=== PATIENT | male | born 1990 | race Caucasian/White ===

== ENCOUNTER 2020-07-28 16:54 | Emergency (ER) | payer OTHER ==
[~2020-07-28] VITALS: Ht 188 cm; Wt 104.3 kg
[2020-07-28] MEDS ORDERED: DEPAKOTE ER500 M1 PO (17:04)
[2020-07-28] MEDS ORDERED: BENZTROPINE MES1 MG PO (17:05)
[2020-07-28] MEDS ORDERED: LORATIDINE 10 M10 M1 PO (17:05)
[2020-07-28] MEDS ORDERED: PROTONIX40 M2 PO (17:05)
[2020-07-28] MEDS ORDERED: HYDROXYZINE PAM25 M1 PO (17:06)
[2020-07-28] MEDS ORDERED: DEPAKOTE 250MG250 MG PO (17:06)
[2020-07-28] MEDS ORDERED: REMERON15 M2 PO (17:07)
[2020-07-28] MEDS ORDERED: MELATONIN5 MG PO (17:07)
[2020-07-28] MEDS ORDERED: MINIPRESS2 MG PO (17:08)
[2020-07-28] MEDS ORDERED: OLANZAPINE15 M1 PO (17:08)
[2020-07-28] MEDS ORDERED: DESYREL150 MG PO (17:09)
[2020-07-28] MEDS ORDERED: TYLENOL325 M1 PO (17:09)
[2020-07-28 18:30] VITALS: BP 126/77
== END 2020-07-28 18:40 ==
LOC: ER 16:54
DX: M25.522 Pain in left elbow (principal); Z79.899 Other long term (current) drug therapy; Z88.5 Allergy status to narcotic agent; Y04.2XXA Assault by strike against or bumped into by another person, initial encounter; Y93.89 Activity, other specified; Y92.89 Other specified places as the place of occurrence of the external cause; Y99.8 Other external cause status

== ENCOUNTER 2020-09-02 12:07 | Emergency (ER) | payer OTHER ==
[~2020-09-02] VITALS: Ht 193 cm; Wt 104.3 kg
[~2020-09-02 12:07] MED LIST: BENZTROPINE MES1 MG PO; DEPAKOTE 250MG250 MG PO; DEPAKOTE ER500 M1 PO; DESYREL150 MG PO; HYDROXYZINE PAM25 M1 PO; LORATIDINE 10 M10 M1 PO; MELATONIN5 MG PO; MINIPRESS2 MG PO; OLANZAPINE15 M1 PO; PROTONIX40 M2 PO; REMERON15 M2 PO; TYLENOL325 M1 PO
[2020-09-02] MEDS ORDERED: TORADOL 10 MG T10 MG PO (13:51)
[2020-09-02 13:55] VITALS: BP 119/78
== END 2020-09-02 13:55 ==
LOC: ER 12:07
DX: S09.90XA Unspecified injury of head, initial encounter (principal); Z79.899 Other long term (current) drug therapy; Z88.5 Allergy status to narcotic agent; Y04.2XXA Assault by strike against or bumped into by another person, initial encounter; Y93.89 Activity, other specified; Y92.89 Other specified places as the place of occurrence of the external cause; Y99.8 Other external cause status

== ENCOUNTER 2021-04-13 17:24 | Emergency (ER) | payer OTHER ==
[~2021-04-13] VITALS: Ht 193 cm; Wt 86.2 kg
--- NOTE | ~2021-04-13 | EMS ---
[facility] [address] [place] [address] EMS Patient Care Report Name: AUDRA MARQUIS Room #: DEP ANGELA Boland#: [id number] Admission: 04/13/21 Attend Phys: Discharge: 04/13/21 Date of : [birth year] Report #: [id number] THIS REPORT FOR: //name// Report Transmitted: 04/16/2021 09:31 EMS Care Summary [place], [place]/[facility] Incident [id number] @ 04/13/2021 16:46 Incident Location [address] [place] [address] Patient AUDRA MARQUIS Male, 30 Years 1990 Patient Address [id number] [place] [id number] Patient History Behavioral/Psychiatric Disorder,Gastro-Esophageal Reflux Disease (GERD),Schizophrenia, Patient Allergies Codeine, Patient Medications Protonix, Mirtazapine, Prazosin, Hydroxyzine, Olanzapine, Depakote, Clonazepam, Melatonin, Benztropine, Trazodone, Chief Complaint suicidal Disposition Transported No Lights/[place] Dispatch Reason Sick Person Transported To [facility] Narrative patient is found walking around at the scene. patient states that for about the [facility] [address] [place] [address] EMS Patient Care Report Name: AUDRA MARQUIS Room #: DEP ER Kya#: [id number] Admission: 04/13/21 Attend Phys: Discharge: 04/13/21 Date of : [birth year] Report #: [id number] last two days he has been feeling suicidal. patient says that he has a plan by hanging himself. patient has not made an attempt. patient is calm and cooperative. patient is wanting to get help. patient has no complaints of illness or pain. patient remains alert during transport. Initial Vitals @17:09P: 76,R: 14,BP: 131/81,Pain: 0/10,GCS: 15,Revised Trauma: 12, Assessments @17:09MENTAL:No Abnormalities,SKIN:No Abnormalities,HEENT:Head/Face: No Abnormalities,Eyes: No Abnormalities,Neck/Airway: No Abnormalities,LUNG SOUNDS:General: No Abnormalities,Left Upper: No Abnormalities,Right Upper: No Abnormalities,Left Lower: No Abnormalities,Right Lower: No Abnormalities,ABDOMEN:General: No Abnormalities,Left Upper: No Abnormalities,Right Upper: No Abnormalities,Left Lower: No Abnormalities,Right Lower: No Abnormalities,PELVIS//GI:No Abnormalities,EXTREMITIES:Left Arm: No Abnormalities,Right Arm: No Abnormalities,Left Leg: No Abnormalities,Right Leg: No Abnormalities,PULSE:NEURO:No Abnormalities, Impression Behavioral/psychiatric episode Procedures @17:09ALS AssessmentResponse: UnchangedSucceeded@17:14StretcherResponse: Unchanged Timeline 16:44,Call Received 16:44,Dispatch Notified 16:46,Dispatched 16:52,En Route 17:05,On Scene 17:09,At Patient 17:09,ALS Assessment,Response: UnchangedSucceeded, 17:09,BP: 131/81 M,PULSE: 76,RR: 14 R,SPO2: Ox,ETCO2: ,BG: ,PAIN: 0,GCS: 15, 17:13,Depart Scene 17:14,Stretcher,Response: Unchanged 17:40,At Destination 17:44,Call Closed Disclaimer v1.1 Copyright 2020 [employer] This EMS Care Summary contains data elements from the applicable legal record (which may be displayed differently). It is designed to provide pertinent information for the following purposes: continuity of care, clinical quality, and state data reporting. The complete legal record is available to ED staff [address] [address] EMS Patient Care Report Name: AUDRA MARQUIS [facility] [id number] Admission: 04/13/21 Attend Phys: Discharge: 04/13/21 Date of : [birth year] Report #: [id number] and administrators of the receiving hospital in [place]'s Patient Tracker. All data is provided "as is."
[~2021-04-13 17:24] MED LIST changes: +TORADOL 10 MG T10 MG PO
[2021-04-13 17:54] LABS: ABSOLUTE NEUTROPHILS 3.2 thou/uL (1.4-8.2); BASOPHILS 0.3 % (0.0-2.0); EOSINOPHILS 3.7 % (0.0-3.0); HEMOGLOBIN 13.6 gm/dL (14.0-18.0); LYMPHOCYTES 41.4 % (24.0-44.0); MCH 29.9 pg (26.0-34.0); MCHC 33.2 g/dL (28.0-37.0); MONOCYTES 6.6 % (1.0-8.0); PLATELET COUNT 203 thou/uL (150-400); RBC 4.55 mil/uL (4.50-6.00); RDW 13.8 % (10.5-14.5); WBC 6.6 thou/uL (4.0-11.0)
[2021-04-13 18:02] LABS: URINE BILIRUBIN NEGATIVE (Negative); URINE BLOOD NEGATIVE (Negative); URINE CLARITY CLEAR; URINE COLOR YELLOW; URINE GLUCOSE-RANDOM* NEGATIVE (Negative); URINE KETONES NEGATIVE (Negative); URINE LEUKOCYTES-REFLEX NEGATIVE (Negative); URINE NITRITE-REFLEX NEGATIVE (Negative); URINE PROTEIN (DIPSTICK) NEGATIVE (Negative); URINE UROBILINOGEN 0.2 E.U./dl (0.2-1.0)
[2021-04-13 18:04] LABS: ANION GAP 8 mmol/L (7-16); BUN 5 mg/dL (7-18); CALCIUM 8.2 mg/dL (8.5-10.1); CHLORIDE 105 mmol/L (98-107); CO2 24 mmol/L (21-32); CREATININE 0.8 mg/dL (0.7-1.3); GLUCOSE 96 mg/dL (74-106); POTASSIUM 3.3 mmol/L (3.5-5.1); SODIUM 137 mmol/L (136-145)
[2021-04-13 18:10] LABS: ALBUMIN 3.8 g/dL (3.4-5.0); DIRECT BILIRUBIN < 0.1 mg/dL (<0.1-0.2); SALICYLATE 3.4 mg/dL (2.8-20.0); SGOT 21 U/L (15-37); SGPT 16 U/L (16-63); TOTAL BILIRUBIN 0.2 mg/dL (0.2-1.0)
[2021-04-13 18:13] LABS: AMP/METHAMP Negative (Negative); BARBITURATES Negative (Negative); BENZODIAZEPINES Negative (Negative); COCAINE Negative (Negative); METHADONE Negative (Negative); OPIATES Negative (Negative); PCP Negative (Negative)
[2021-04-13 21:04] VITALS: BP 123/66
== END 2021-04-13 21:05 ==
LOC: ER 17:24
PROVIDERS: Emergency Medicine
DX: R45.851 Suicidal ideations (principal); Z20.822 Contact with and (suspected) exposure to COVID-19; F20.9 Schizophrenia, unspecified; F31.9 Bipolar disorder, unspecified; F12.90 Cannabis use, unspecified, uncomplicated; Z79.899 Other long term (current) drug therapy; Z79.891 Long term (current) use of opiate analgesic; Z88.5 Allergy status to narcotic agent